=== PATIENT | female | born 1975 | race Caucasian/White ===

== ENCOUNTER → 2020-08-23 08:25 | Outpatient (CLI) | payer OTHER, BC, SELFPAY ==
--- NOTE | ~2020-08-23 | US_ITS ---
EXAMINATION: US pelvic complete w TV DATE: 08/23/2020 08:54 INDICATION: Right lower quadrant abdominal pain. Previous hysterectomy. Comparison:No prior studies for comparison. TECHNIQUE: Multiple transabdominal and endovaginal sonographic images of the pelvis performed. FINDINGS: The uterus is surgically absent. The right ovary measures 1.4 x 1.2 x 1.1 cm and the left o vary measures 2.1 x 1.6 x 1.4 cm. There is a 1.4 cm right ovarian cyst. There is trace free fluid in the pelvis. There are no abnormal masses seen on either side. IMPRESSION: 1. 1.4 cm right ovarian cyst. Reviewed, dictated and finalized at location B.
== END ==
PROVIDERS: PCP Nurse Practitioner Family; Visit Provider Registered Nurse
DX: R10.31 Right lower quadrant pain (principal); N83.201 Unspecified ovarian cyst, right side
CPT/HCPCS: 76830; 76856

== ENCOUNTER → 2021-02-08 17:44 | Outpatient (CLI) | payer OTHER, BC, SELFPAY ==
--- NOTE | ~2021-02-08 | DEXA_ITS ---
Bone Density Report Name: Cheri Garzon Age: 45 Sex: Female Ethnicity: White Date of : 1975 Indication: postmenopausal; history of glucocorticoids; hysterectomy; Referring Provider: TERESACHEKO Servin Study: Bone densitometry was performed. Exam Date: February 08, 2021 Accession number: [id number] Bone Density: Region BMD T-score Z-score Classification AP Spine (L1-L4) 1.208 1.5 1.9 Normal Femoral Neck (Left) 0.866 0.1 0.6 Normal Total Hip (Left) 0.978 0.3 0.6 Normal Femoral Neck (Right) 0.883 0.3 0.7 Normal Total Hip (Right) 0.994 0.4 0.7 Normal Total Hip Mean 0.986 0.4 0.7 Normal World Health Organization criteria for BMD impression classify patients as: Normal (T-score at or above -1.0), Osteopenia (T-score between -1.0 and -2.5), or Osteoporosis (T-score at or below -2.5). 10-year Fracture Risk: FRAX not reported because: All T-scores for Spine Total, Hip Total, Femoral Neck at or above -1.0 Clinical Information Provided by Patient: Smokes Has taken Glucocorticoids Has used the following medications: Vitamin D Has the following medical conditions: Hysterectomy Patient maximum height was 69 Menopause Age: 33 No regular weight bearing exercise Drinks caffeinated beverages Onset of menses at age 13 Number of children 2 Impression: The patient has normal bone mass. The patient has risk factors, including: smoking, history of glucocorticoid therapy. Discussion: BONE DENSITY IS ABOVE THE MINIMUM DESIRABLE LEVEL AT ALL SKELETAL SITES TESTED. This patient?s bone mineral density is above the minimum desirable level (T-score -1.0 or better) at all sites measured. The patient should follow a healthful lifestyle (good nutrition with adequate calcium and vitamin D, and appropriate weight-bearing exercise). Follow-Up: Consider repeating this study in 5 years or sooner if there is some new clinical indication. Reported by: LEATHA on 02/08/2021 6:42:00 PM. Reviewed, dictated and finalized at location [facility]aly [facility]
--- NOTE | ~2021-02-08 | MM_ITS ---
EXAMINATION: MM screening [facility] BI w cullen HISTORY: Screening mammogram TECHNIQUE: Craniocaudal and mediolateral oblique 3-D tomosynthesis images were obtained and synthetic 2-D images were generated. CAD analysis was submitted and interpreted. COMPARISON: 08/26/2018 diagnostic right digital mammogram and limited right breast ultrasound 08/22/2018 bilateral digital screening mammogram BREAST PARENCHYMAL COMPOSITION: The breasts are heterogeneously dense, which may obscure small masses . FINDINGS: There is no evidence of suspicious mass, calcification, or architectural distortion to sugg est malignancy in either breast. There has been no suspicious interval change. IMPRESSION: 1. No mammographic evidence of malignancy. 2. Recommend routine screening mammography in one year. BI-RADS Category 1: Negative Reviewed, dictated and finalized at location A.
== END ==
PROVIDERS: PCP Nurse Practitioner Family; Visit Provider Nurse Practitioner Family
DX: Z12.31 Encounter for screening mammogram for malignant neoplasm of breast (principal); Z78.0 Asymptomatic menopausal state
CPT/HCPCS: 77063; 77067; 77080

== ENCOUNTER → 2022-11-28 14:42 | Outpatient (CLI) | payer OTHER, BC, SELFPAY ==
--- NOTE | ~2022-11-28 | MR_ITS ---
EXAMINATION: MR brain/brain stem wo con DATE: 11/28/2022 15:17 INDICATION: Syncope. TECHNIQUE: Magnetic resonance imaging (MRI) of the brain and brainstem was performed without intraven ous contrast. COMPARISON: None. FINDINGS: There is no intracranial hemorrhage, acute infarction, or abnormal intracranial mass lesion . The ventricles are normal in size. The orbits are normal. The paranasal sinuses are clear. The mast oid air cells are normal. IMPRESSION: 1. Normal brain. Reviewed, dictated and finalized at location A. ER FOAM RUBBER IMPRESSION: 1. Normal brain.
== END ==
PROVIDERS: PCP Nurse Practitioner Family; Visit Provider Nurse Practitioner Family
DX: R55 Syncope and collapse (principal); R42 Dizziness and giddiness; R20.2 Paresthesia of skin; G43.009 Migraine without aura, not intractable, without status migrainosus
CPT/HCPCS: 70551

== ENCOUNTER → 2023-11-10 08:10 | Outpatient (CLI) | payer BC, SELFPAY ==
--- NOTE | ~2023-11-10 | MM_ITS ---
EXAMINATION: MM screening [facility] BI w cullen HISTORY: Screening mammogram TECHNIQUE: Craniocaudal and mediolateral oblique 3-D tomosynthesis images were obtained and synthetic 2-D images were generated. CAD analysis was submitted and interpreted. COMPARISON: 02/08/2021, 08/26/2018, 08/22/2018 BREAST PARENCHYMAL COMPOSITION: The breasts are heterogeneously dense, which may obscure small masses . FINDINGS: RIGHT BREAST: There are obscured masses in the middle third of the central breast. LEFT BREAST: No suspicious mass, calcification, or architectural distortion are identified to suggest malignancy. There has been no suspicious interval change. IMPRESSION: 1. Right breast masses. 2. Additional mammographic views and possible breast ultrasound are recommended. BI-RADS Category 0: Incomplete: Needs additional imaging evaluation. Reviewed, dictated and finalized at location A. LY RESOURCE COORDINATOR IMPRESSION: 1. Right breast masses. 2. Additional mammographic views and possible breast ultrasound are recommended . BI-RADS Category 0: Incomplete: Needs additional imaging evaluation.
== END ==
PROVIDERS: PCP Nurse Practitioner Family; Visit Provider Obstetrics & Gynecology
DX: Z12.31 Encounter for screening mammogram for malignant neoplasm of breast (principal); R92.8 Other abnormal and inconclusive findings on diagnostic imaging of breast
CPT/HCPCS: 77063; 77067

== ENCOUNTER 2023-12-03 07:46 | Outpatient (CLI) | payer BC, SELFPAY ==
--- NOTE | ~2023-12-03 | MMUS_ITS ---
EXAMINATION: MM diagnostic [facility] RT w cullen, US breast RT complete HISTORY: Follow-up right breast asymmetry TECHNIQUE: Additional 3-D tomosynthesis images of the right breast were performed and synthetic 2-D i mages were generated. CAD analysis was submitted and interpreted. High resolution complete right gene st ultrasound was performed. COMPARISON: 11/10/2023 BREAST PARENCHYMAL COMPOSITION: The breasts are extremely dense, which lowers the sensitivity of mamm ography FINDINGS: MAMMOGRAPHIC FINDINGS: There is a mass located in the upper inner quadrant of the right breast obscured by dense fibroglandu lar tissue. ULTRASOUND: Complete US of all 4 quadrants of the right breast and retroareolar region was reviewed. Multiple rig ht breast cysts, largest measuring 2.2 cm. No suspicious solid masses to suggest malignancy. IMPRESSION: 1. No evidence for malignancy in the right breast. 2. Routine yearly screening mammogram and regular clinical breast examination are recommended. BI-RADS Category 2: Benign finding(s). Reviewed, dictated and finalized at location A. CENTER MANAGER IMPRESSION: 1. No evidence for malignancy in the right breast. 2. Routine yearly screening mammogram and regular clinical breast examination a re recommended. BI-RADS Category 2: Benign finding(s).
== END 2023-12-03 07:47 ==
PROVIDERS: PCP Nurse Practitioner Family; Visit Provider Obstetrics & Gynecology
DX: R92.8 Other abnormal and inconclusive findings on diagnostic imaging of breast (principal)
CPT/HCPCS: 76641; 77061; 77065; G0279

== ENCOUNTER 2024-01-15 10:29 | Outpatient (CLI) | payer BC, SELFPAY ==
--- NOTE | ~2024-01-15 | CT_ITS ---
Non-contrast Head CT History: Angioedema Technique: Axial non-contrast imaging of the brain was performed. Dose reduction technique was used on this scan by utilizing automated exposure control and iterative reconstruction technique. The dose -length product (DLP) was 599.57 mGy-cm. Findings: There is no evidence of intracranial hemorrhage, mass lesion, or acute infarct. Brain par enchyma appears normal. The ventricles and subarachnoid spaces are normal in size. The calvarium ap pears normal. The visualized paranasal sinuses and mastoid air cells are clear. Impression: No significant abnormality seen. Reviewed, dictated and finalized at location . Impression: No significant abnormality seen.
== END 2024-01-15 10:30 ==
LOC: MICIMG 10:30
PROVIDERS: PCP Nurse Practitioner Family; Visit Provider Nurse Practitioner Family
DX: R29.818 Other symptoms and signs involving the nervous system (principal); T78.3XXD Angioneurotic edema, subsequent encounter; H53.8 Other visual disturbances; R22.0 Localized swelling, mass and lump, head; R51.9 Headache, unspecified; X58.XXXD Exposure to other specified factors, subsequent encounter
CPT/HCPCS: 70450

== ENCOUNTER 2024-04-14 17:12 | Outpatient (CLI) | payer BC, SELFPAY ==
--- NOTE | ~2024-04-14 | CT_ITS ---
EXAMINATION: CT abdomen pelvis wo con DATE: 04/14/2024 17:34 INDICATION: RLQ PAIN TECHNIQUE: Computed tomography (CT) of the abdomen and pelvis was performed without intravenous contr ast. Automated exposure control and iterative reconstruction technique were employed. The dose-length product was 308.16 mGy-cm. COMPARISON: 02/28/2017. FINDINGS: Lower thorax: Unremarkable Liver: Normal. Biliary/Gallbladder: Tiny calcification along the nondependent gallbladder wall, likely adherent gall stone. No inflammatory changes. No bile duct dilation. Pancreas: No mass or duct dilation. Spleen: Normal. Adrenals:No mass. Kidneys: No suspicious mass, obstructing stone, or hydronephrosis. GI tract: No small or large bowel dilation. Normal appendix. Diverticulosis without diverticulitis. Mesentery/Peritoneum: No ascites, mass, or free air. Retroperitoneum: No mass. Pelvis: Normal urinary bladder. Absent uterus. Normal bilateral ovaries. 2.3 cm simple left ovarian c yst which requires no additional evaluation at this time. Soft Tissues: Soft tissues and body wall unremarkable. Bones: No acute osseous finding. IMPRESSION: No acute abdominopelvic process detected. Reviewed, dictated and finalized at location K.
== END 2024-04-14 17:13 | disposition home or self-care (01) ==
LOC: ANHIMG 17:13
PROVIDERS: PCP Nurse Practitioner Family; Visit Provider Nurse Practitioner Family
DX: R10.31 Right lower quadrant pain (principal); R10.11 Right upper quadrant pain
CPT/HCPCS: 74176

== ENCOUNTER 2024-05-01 10:31 | Outpatient (CLI) | payer BC, SELFPAY ==
--- NOTE | ~2024-05-01 | NM_ITS ---
EXAMINATION: NM hepatobiliary w pharm DATE: 05/01/2024 13:22 INDICATION: Abdominal pain COMPARISON: CT abdomen pelvis dated 04/14/2024 TECHNIQUE: 5.1 mCi Tc-99m mebrofenin (Choletec) was administered intravenously. Scintigraphic images of the abdomen were obtained for one hour. 3 mcg sincalide (Kinevac) was administered by slow intrav enous infusion, and imaging was continued for 30 minutes. Gallbladder ejection fraction was calculate d by the technologist. FINDINGS: There is normal clearance of radiotracer from the blood pool. There is homogeneous tracer uptake by t he liver. Activity progresses to the gallbladder and bowel. The gallbladder ejection fraction (GBEF) is 91% (normal 10-90%, but most patient with gallbladder dysfunction have GBEF < 35% which does over lap with the normal range). IMPRESSION: 1. Normal hepatobiliary scan. Reviewed, dictated and finalized at location B.
== END 2024-05-01 10:32 | disposition home or self-care (01) ==
PROVIDERS: PCP Nurse Practitioner Family; Visit Provider Nurse Practitioner Family
DX: R10.9 Unspecified abdominal pain (principal); K80.20 Calculus of gallbladder without cholecystitis without obstruction
CPT/HCPCS: 78227; A9537; J2805

== ENCOUNTER 2025-02-05 10:18 | Outpatient (CLI) | payer BC, SELFPAY ==
--- NOTE | ~2025-02-05 | MM_ITS ---
EXAMINATION: MM screening [facility] BI w cullen HISTORY: Screening TECHNIQUE: Craniocaudal and mediolateral oblique 3-D tomosynthesis images were obtained and synthetic 2-D images were generated. CAD analysis was submitted and interpreted. COMPARISON: Comparison to multiple prior studies sequentially, with oldest reviewed study dated 08/05. BREAST PARENCHYMAL COMPOSITION: Dense: The breasts are heterogeneously dense, which may obscure small masses FINDINGS: There is a new mass in the subareolar location of the right breast, obscured by fibroglandu lar tissue. There is no evidence of suspicious mass, calcification, or architectural distortion to sunshine ggest malignancy in either breast. There has been no suspicious interval change. The left breast is s table without evidence for malignancy. IMPRESSION: 1. New subareolar mass of the right breast. 2. Additional mammographic views and possible breast ultrasound are recommended. BI-RADS Category 0: Incomplete: Needs additional imaging evaluation. Reviewed, dictated and finalized at location A. IMPRESSION: 1. New subareolar mass of the right breast. 2. Additional mammographic views and possible breast ultrasound are recommended . BI-RADS Category 0: Incomplete: Needs additional imaging evaluation.
== END 2025-02-05 10:19 | disposition home or self-care (01) ==
PROVIDERS: PCP Obstetrics & Gynecology; Visit Provider Nurse Practitioner Family
DX: Z12.31 Encounter for screening mammogram for malignant neoplasm of breast (principal); R92.8 Other abnormal and inconclusive findings on diagnostic imaging of breast
CPT/HCPCS: 77063; 77067

== ENCOUNTER 2025-03-25 08:20 | Outpatient (CLI) | payer BC, SELFPAY ==
--- NOTE | ~2025-03-25 | MMUS_ITS ---
EXAMINATION: MM diagnostic [facility] RT w cullen, US breast RT limited HISTORY: Follow-up new mass right breast seen on prior screening study TECHNIQUE: Additional 3-D tomosynthesis images of the right breast were performed and synthetic 2-D i mages were generated. CAD analysis was submitted and interpreted. High resolution Limited right breas t ultrasound was performed. COMPARISON: Comparison to multiple prior studies sequentially, with oldest reviewed study dated 08/05. BREAST PARENCHYMAL COMPOSITION: Dense: The breasts are heterogeneously dense, which may obscure small masses FINDINGS: MAMMOGRAPHIC FINDINGS: There are multiple masses in the periareolar location of the right breast, one of which appears new i n the upper outer quadrant anteriorly. There are no suspicious calcifications or architectural distor tion. ULTRASOUND: Limited right breast ultrasound: At 3:00 near the nipple there is an irregular shaped hypoechoic 6 x 4 x 6 mm mass without internal vascularity or posterior features. Lateral margins are slightly irregu lar. At 9:00 near the nipple there is a 1.5 x 1.2 x 1.1 cm cyst. IMPRESSION: 1. Irregular shaped 6 mm right breast mass at 3:00 near the nipple. 2. Ultrasound-guided biopsy recommended. BI-RADS category 4, suspicious findings. Reviewed, dictated and finalized at location [] IMPRESSION: 1. Irregular shaped 6 mm right breast mass at 3:00 near the nipple. 2. Ultrasound-guided biopsy recommended. BI-RADS category 4, suspicious findings.
== END 2025-03-25 08:21 | disposition home or self-care (01) ==
LOC: MICIMG 08:21
PROVIDERS: PCP Obstetrics & Gynecology; Visit Provider Nurse Practitioner Family
DX: N63.15 Unspecified lump in the right breast, overlapping quadrants (principal)
CPT/HCPCS: 76642; 77061; 77065; G0279